=== PATIENT | female | born 1985 | race Caucasian/White ===

== ENCOUNTER 2018-10-09 16:47 | Outpatient (CLI) | END 2018-10-09 18:35 | disposition home or self-care (01) ==

== ENCOUNTER 2018-10-13 | Observation (INO) | END 2018-10-13 14:45 | disposition home or self-care (01) ==

== ENCOUNTER 2018-10-16 16:58 | Outpatient (CLI) | END 2018-10-16 19:59 | disposition home or self-care (01) ==

== ENCOUNTER 2018-10-19 20:49 | Outpatient (CLI) | END 2018-10-19 22:55 | disposition home or self-care (01) ==

== ENCOUNTER 2018-10-24 17:51 | Outpatient (CLI) | END 2018-10-24 19:45 | disposition home or self-care (01) ==

== ENCOUNTER 2018-11-02 17:10 | Inpatient (IN) | payer MEDICAID ==
[~2018-11-02] VITALS: Ht 157.5 cm; Wt 63.6 kg
[~2018-11-02 17:10] MED LIST: PREN-93 PO
[2018-11-02 17:28] VITALS: BP 102/63; Ht 157.5 cm; Wt 63.6 kg
[2018-11-02] MEDS ORDERED: LACTATED RINGER'S 1,000 ML IV SCH (19:19)
--- NOTE | 2018-11-02 19:24 | TRIAGE ---
OB Triage Datetime Report Generated by CPN: 11/02/2018 19:23 Datetime: 11/02/2018 18:44 Dilatation (cms): 3.0 Effacement (%): 80 Station: -2 Exam By: Marine BROOKS Datetime: 11/02/2018 18:25 Stage of : OB Triage Frequency: 1-6 Duration (sec)2399: 60-80 FHR Baseline Rate: 160 Monitor Mode: External US Variability: Moderate 6-25 bpm Accelerations: 15X15 Decelerations: Early Category: Category I Pain Presence: None/Denies Pain Type: N/A Membrane Status: Intact Datetime: 11/02/2018 17:26 Stage of : OB Triage Assessment Type: Triage Level of Consciousness: Fully Conscious DTR's/Clonus: DTRs 2+; No Clonus Headache: Denies Blurred Vision: No Respiratory Effort: Unlabored; Regular Rhythm; Equal Expansion Breath Sounds, Left: Clear and Equal Breath Sounds, Right: Clear and Equal Nausea/Vomiting: Denies RUQ Epigastric Pain: Denies Lower Extremities Edema: None Degree: None Upper Extremities Edema: None Degree: None Facial Edema: None Temperature Route: Oral History of Falling: (0) No Secondary Diagnosis: (0) No Ambulatory Aid: (0) Bedrest/Nurse Assist IV Therapy: (0) No Gait: (0) Normal/Bedrest/Immobile Mental Status: (0) Oriented to Own Ability Fall Score: 0 Fall Risk Score Definition: No Risk: No action required Monitor Mode: External Monitor Mode: External US Pain Scale: 0 Pain Presence: None/Denies Datetime: 11/02/2018 17:25 Arrived By: Ambulatory Arrived From: Home Movement: Present Contractions: Denies/Absent Rupture of Membranes: Denies Vaginal Bleeding: None Vaginal Discharge: Denies Recent Sexual Intercouse: Denies Abdominal Trauma: Not Applicable Patient Complaints: Other Time Provider Notified: 11/02/2018 19:17 Provider Notified: DR. WAGNER Initial Plan: NST BPP FOR GDM Datetime: 10/30/2018 20:00 Fall Score: 0 Fall Risk Score Definition: No Risk: No action required Datetime: 10/30/2018 19:53 EGA: 38.5
[2018-11-02] MEDS ORDERED: CARBOPROST 250 MCG INJ IM PRN (19:30)
[2018-11-02] MEDS ORDERED: BUTORPHANOL 2 MG INJ IV PRN (19:30)
[2018-11-02] MEDS ORDERED: MISOPROSTOL 200 MCG TAB PR PRN (19:30)
[2018-11-02] MEDS ORDERED: METHYLERGONOVINE 0.2 MG INJ IM PRN (19:30)
[2018-11-02] MEDS ORDERED: LIDOCAINE 1% (MPF) 30 ML INJ INJ PRN (19:30)
[2018-11-02] MEDS ORDERED: OXYTOCIN 30 UNITS/LR 500 ML IV PRN (19:30)
[2018-11-02] MEDS ORDERED: OXYTOCIN 30 UNITS/LR 500 ML IV SCH ×3 (19:30)
[2018-11-03] MEDS ORDERED: IBUPROFEN 600 MG TAB PO ONE
[2018-11-03] MEDS ORDERED: HYDROCODONE/APAP (5/325) TAB PO ONE (00:30)
--- NOTE | 2018-11-03 00:59 | HP ---
Date/Time of Note Date/Time of Note DATE: 11/03/18 TIME: 00:55 OB - History Hx of Present Free Text/Dictation Late entry note. Patient seen on 11/02/2018 at 1900 33-year-old 3 para 2 with single intrauterine at 39 weeks and 1 day with gestational diabetes A1 and a CALLIE of 11/08/2018 complaining of uterine contractions. She states good movement. She denies nausea, vomiting, shortness of breath, chest pain, headache, visual changes, vaginal bleeding or LOF. Chief Complaint: Uterine contractions Estimated Due Date: Nov 08, 2018 : 3 Para: 2 Spontaneous : 0 Therapeutic : 0 Care: Good Care Ultrasounds: Normal mid trimester US Obstetrical Complications: Gestational Diabetes Medical Complications: None Past Family/Social History * Past Medical, Surgical, Family and Obstetric Histories reviewed from chart. Blood Type: O+ Rubella: immune RPR/VDRL: Negative GBS Status: Negative HBsAG: Negative OB Admission Exam Vital Signs Vital Signs Vital Signs Date Temp Pulse Resp B/P (MAP) Pulse Ox O2 O2 Flow FiO2 Time Delivery Rate 11/02/18 98.5 102/63 17:28 (76) Physical Exam HEENT: WNL Heart: Rhythm Normal Lungs: Clear Abdomen: WNL Extremities: Normal Cervical Dilatation: 4cm Effacement: 75% Station: -3 Membranes: Intact Heart Rate: 140's Accelerations: Accelerations Present Decelerations: No Decelerations Varibility: Moderate Contractions on Admission: < 5 Minutes Apart Intensity: Moderate Last 72 hours Lab Results CBC & BMP 11/02/18 20:00 OB Assessment/Plan Other plan: 33-year-old with gestational diabetes A1 at 39 weeks and 1 day in labor - FHR: No sign of metabolic acidosis- Category I - Continuous EFM, toco - CBC, blood type and screen - Analgesia options with R/B/A discussed in detail with patient - Epidural per patient request - Please see the orders - O+/Rubella: Immune - GBS: negative - Ultrasound performed JOANA 5.98 Admission, procedures, expectations, risks and possible complications have been discussed in detail with the patient. Risk of vaginal delivery including but not limited to bleeding, infection, cervical laceration, placental retention, injury to fetus, blood transfusion, blood transfusion related infection, risk of anesthesia, adhesion, cervical laceration, episiotomy/laceration, possible delivery with risk of bleeding, infection, injury to other organs (bowel, bladder, ureter, vessels, nerves), injury to fetus, blood transfusion, blood transfusion related infection, risk of anesthesia, scar and hernia formation, needs for future , removal of uterus or any other indicated surgery discussed with the patient. She expressed understanding and repeats the risks. All of her questions were answered. She signed the informed consent. PHYSICIAN'S VERIFICATION OF INFORMED CONSENT The patient was counseled regarding the procedure, its indications, risks, potential complications and alternatives and any questions were answered. Consent was obtained. PLANNED PROCEDURE/TREATMENT: Vaginal delivery, episiotomy, repair of laceration possible delivery JONNATHAN WAGNER Nov 03, 2018 00:59
--- NOTE | 2018-11-03 01:05 | LDN ---
Date/Time of Note Date/Time of Note DATE: 11/03/18 TIME: 01:00 Delivery Summary 33-year-old at 39 weeks and 1 day delivered a viable female in cephalic presentation over median episiotomy. Nose and mouth suctioned. Rest of body delivered. Cord clamped and cut. Placenta delivered spontaneously and intact. Episiotomy repaired with 3-0 Vicryl. Patient tolerated procedure well. Time of delivery 23: 46 Weight 7 pounds 10 ounces Height 19 inches 9 at 1 minutes and 9 at 5 minutes EBL 200 Weeks of Gestation 39-week and 1 day Placenta Delivered: Spontaneously Meconium: none Episiotomy: Yes (Median episiotomy) Anesthesia type: Local Estimated blood loss: 200 Sponge & Needle done & correct: Yes All needle counts correct: Yes Any foreign bodies felt in the: No Delivery Information Sex Infant Sex: female Apgars 1 Minute: 9 5 Minute: 9 10 Minute: 10 Umbilical Cord Umbilical cord with: 3 Vessels Cord presentations: no nuchal cord Cord Blood was obtained: Yes Mother & Baby Disposition Disposition Mom & Baby to Maternity; Good: Yes JONNATHAN WAGNER Nov 03, 2018 01:05
[2018-11-03] MEDS ORDERED: SENNA/DOCUSATE NA (8.6MG/50MG) TAB PO PRN (02:00)
[2018-11-03] MEDS ORDERED: DIBUCAINE 1% 30 GM OINT TOP PRN (02:00)
[2018-11-03] MEDS ORDERED: OXYTOCIN 30 UNITS/LR 500 ML IV PRN (02:00)
[2018-11-03] MEDS ORDERED: LANOLIN HPA 1 PKT TOP PRN (02:00)
[2018-11-03] MEDS ORDERED: DIPHENHYDRAMINE 50 MG INJ IV PRN (02:00)
[2018-11-03] MEDS ORDERED: ZOLPIDEM 5 MG TAB PO PRN (02:00)
[2018-11-03] MEDS ORDERED: WITCH HAZEL/GLYCERIN PAD PR PRN (02:00)
[2018-11-03] MEDS ORDERED: CARBOPROST 250 MCG INJ IM PRN (02:00)
[2018-11-03] MEDS ORDERED: METHYLERGONOVINE 0.2 MG INJ IM PRN (02:00)
[2018-11-03] MEDS ORDERED: ACETAMINOPHEN 325 MG TAB PO PRN (02:00)
[2018-11-03] MEDS ORDERED: ONDANSETRON 4 MG INJ IV PRN (02:00)
[2018-11-03] MEDS ORDERED: MISOPROSTOL 200 MCG TAB PR PRN (02:00)
[2018-11-03 02:10] VITALS: BP 132/65; PULSE 70; RESP 18
[2018-11-03 04:20] VITALS: BP 104/54; PULSE 74; RESP 18
[2018-11-03] MEDS: BENZOCAINE 20% 56 ML SPRAY TOP PRN (04:36)
[2018-11-03] MEDS: OXYCODONE/ASPIRIN (4.88/325) TAB PO PRN ×2 (04:53→15:56)
[2018-11-03] MEDS: LACTATED RINGER'S 1,000 ML IV* SCH ×2 (04:56→07:35)
[2018-11-03] MEDS: DEXTROSE 5%-LR 1,000 ML IV SCH ×2 (05:03→07:35)
[2018-11-03] MEDS: IBUPROFEN 600 MG TAB PO SCH ×4 (06:25→23:38)
[2018-11-03 08:00] VITALS: BP 108/64; PULSE 67; RESP 18
[2018-11-03 16:34] VITALS: BP 116/57; PULSE 76; RESP 18
[2018-11-03 20:30] VITALS: BP 119/59; PULSE 69; RESP 18
[2018-11-04 03:45] VITALS: BP 117/72; PULSE 66; RESP 20
[2018-11-04] MEDS: IBUPROFEN 600 MG TAB PO SCH ×2 (05:33→11:36)
[2018-11-04 08:00] VITALS: BP 108/58; PULSE 71; RESP 18
--- NOTE | 2018-11-04 11:15 | QN ---
Documentation Comment PPD#1 is stable afebrile no VB +BM+voids VS stable Gen NAD Abd soft NT ND Genitalia No blood at perineum --->Discharge Home LOUIE GA M.D. Nov 04, 2018 11:15
--- NOTE | 2018-11-04 11:16 | DS ---
Date/Time of Note Date/Time of Note DATE: 11/04/18 TIME: 11:15 Discharge Summary Admission/Discharge Info Admit Date/Time Nov 02, 2018 at 19:17 Discharge Date/Time Discharge Diagnosis Patient Condition: Good Hospital Course uneventful Home Meds Reported Medications Vit No.124/Iron/FA ( Vitamin Tablet) 1 Each Tablet, 1 EACH PO DAILY, TAB 10/09/18 Primary Care Provider Care Physician No Primary Pending Labs Laboratory Tests Test 11/04/18 07:37 White Blood Count 6.6 10^3/ul (4.8-10.8) Red Blood Count 3.56 10^6/ul (4.20-5.40) Hemoglobin 11.0 g/dl (12.0-16.0) Hematocrit 33.0 % (37.0-47.0) Mean Corpuscular Volume 92.7 fl (82.0-101.0) Mean Corpuscular Hemoglobin 30.9 pg (29.0-33.0) Mean Corpuscular Hemoglobin Concent 33.3 g/dl (32.0-37.0) Red Cell Distribution Width 13.3 % (11.5-14.5) Platelet Count 188 10^3/UL (140-415) Mean Platelet Volume 10.2 fl (7.4-10.4) Immature Granulocytes % 0.300 % (0.001-0.429) Neutrophils % 58.0 % (39.0-77.0) Lymphocytes % 32.2 % (15.0-51.0) Monocytes % 7.7 % (0.0-11.0) Eosinophils % 1.5 % (0.0-7.0) Basophils % 0.3 % (0.0-2.0) Nucleated Red Blood Cells % 0.0 /100WBC (0.0-0.0) Immature Granulocytes # 0.020 10^3/ul (0.0-0.031) Neutrophils # 3.8 10^3/ul (1.6-7.5) Lymphocytes # 2.1 10^3/ul (0.8-2.9) Monocytes # 0.5 10^3/ul (0.3-0.9) Eosinophils # 0.1 10^3/ul (0.0-0.5) Basophils # 0.0 10^3/ul (0.0-0.1) Nucleated Red Blood Cells # 0.0 10^3/ul (0.0-0.0) LOUIE GA M.D. Nov 04, 2018 11:16
[2018-11-04] MEDS: BENZOCAINE 20% 56 ML SPRAY TOP PRN (11:18)
[2018-11-05] MEDS ORDERED: MEASLES,MUMPS,RUBELLA VACCINE INJ SC* ONE (09:00)
[2018-11-05] MEDS ORDERED: DIPHTH/TET/ACEL PERTUSS (ADULT) 0.5 ML VIAL IM* ONE (09:00)
== END 2018-11-04 13:40 | disposition home or self-care (01) | DRG 807 ==
LOC: OBT 17:10 → L-D 17:11 → OBT 19:17 → L-D 19:47 → PP1 11-03 01:57
PROVIDERS: ADMIT Obstetrics & Gynecology; ATTEND Obstetrics & Gynecology
PROC: 10E0XZZ Delivery of Products of Conception, External Approach (ICD-10-PCS; principal; 2018-11-03)
PROC: 0W8NXZZ Division of Female Perineum, External Approach (ICD-10-PCS; 2018-11-03)
DX: O24.420 Gestational diabetes mellitus in childbirth, diet controlled (principal); Z37.0 Single live birth; Z3A.39 39 weeks gestation of pregnancy; Z23 Encounter for immunization
CPT/HCPCS: 76818; 85025; 85610; 85730; 86592; 86850; 86900; 86901; 90715; G0463; J2590; J7120; J7121